=== PATIENT | female | born 1935 | race Hispanic/Latino ===

== ENCOUNTER 2018-02-16 09:01 | Day surgery (SDC) | payer MEDICARE ==
[2018-02-10 11:13] VITALS: BMI 21.7
[2018-02-16 09:30] LABS: BASO # 0.06 K/mm3 (0.0-2.0); BASO % 0.9 % (0.0-3.0); EOS # 0.1 (0.0-0.7); EOS % 2.2 % (1.5-5.0); GRAN # 4.76 (1.4-6.5); GRAN % 75.3 % (50.0-68.0); HEMOGLOBIN 13.2 g/dL (12.0-16.0); LYMPH % 15.7 % (22.0-35.0); MEAN CELL VOLUME 88.5 fl (80.0-105.0); MEAN CORPUSCULAR HEMOGLOBIN 29.9 pg (25.0-35.0); MEAN CORPUSCULAR HGB CONC 33.8 g/dl (31.0-37.0); MEAN PLATELET VOLUME 9.7 fl (7.0-11.0); MONO # 0.4 (0.1-0.6); MONO % 5.9 % (1.0-6.0); RBC 4.42 10^6/uL (3.5-6.1); RED CELL DISTRIBUTION WIDTH 15.8 % (11.5-14.5); WHITE BLOOD COUNT 6.3 10^3/ul (4.5-11.0)
[2018-02-16 09:44] LABS: BLOOD UREA NITROGEN 21 mg/dL (7-21); CALCIUM 9.6 mg/dL (8.4-10.5); GFR AFRICAN-AMERICAN > 60; GFR NON-AFRICAN AMERICAN 53
[2018-02-16 09:46] LABS: INR 0.98 (0.93-1.08); PROTHROMBIN TIME 11.3 SECONDS (9.4-12.5)
[2018-02-16] MEDS ORDERED: Midazolam 2 MG/2 ML VIAL ONE (10:40)
[2018-02-16] MEDS ORDERED: Lidocaine 1% Inj (20ml) ONE (10:41)
[2018-02-16] MEDS ORDERED: Oxycodone/Acetaminophen 5/325 mg Tab PO PRN (11:38)
[2018-02-16] MEDS ORDERED: Sodium Chloride 0.45% 1,000 ML IV SCH (11:45)
[2018-02-16 12:39] VITALS: PULSE 62; RESP 20; TEMP 98.3; O2SAT 97
--- NOTE | 2018-02-16 13:19 | RAD ---
HISTORY: rt lung bx COMPARISON: No prior. FINDINGS: LUNGS: No active pulmonary disease. PLEURA: No significant pleural effusion identified, no pneumothorax apparent. CARDIOVASCULAR: Normal. OSSEOUS STRUCTURES: No significant abnormalities. VISUALIZED UPPER ABDOMEN: Normal. OTHER FINDINGS: None. IMPRESSION: No evidence of post biopsy pneumothorax
[2018-02-16 14:18] VITALS: BP 137/69
--- NOTE | 2018-02-16 14:38 | CT ---
PROCEDURE: CT guided right upper lobe lung biopsy. HISTORY: Solitary 2 cm noncalcified right upper lobe nodule. Previous smoker. Evaluate for malignancy. PHYSICIAN(S): Juventino Drake MD. TECHNIQUE: The relative risks and indications of the procedure were explained to the patient and consent obtained. The patient was placed right decubitus position on the CT scanner and preliminary images through the upper lungs obtained. Conscious sedation and monitoring were provided throughout the procedure by a nurse. There is a 2 cm noncalcified oblong nodule in the right upper lobe medially.. A right posterior approach was selected and the area prepped and draped in the usual sterile fashion. 1% Xylocaine was used to anesthetize the skin and soft tissues. A 19 gauge guiding needle was advanced into the 2 cm right upper lobe nodule. Its position was confirmed with CT. Using coaxial technique, multiple core biopsies were obtained. The postprocedure images show no evidence of large pneumothorax. A small amount of hemorrhage was noted. IMPRESSION: 1. CT-guided right upper lobe lung biopsy as described above.
== END 2018-02-16 15:00 | disposition home or self-care (01) ==
LOC: SDS 09:01
PROVIDERS: ATTEND Radiology Vascular & Interventional Radiology
DX: C34.11 Malignant neoplasm of upper lobe, right bronchus or lung (principal); I10 Essential (primary) hypertension; Z87.891 Personal history of nicotine dependence
CPT/HCPCS: 32405; 36415; 71045; 77012; 80048; 85025; 85610; 85730; 88305; J2250; J2405; J3010; J7030